=== PATIENT | female | born 1950 | race Caucasian/White ===

== ENCOUNTER 2019-07-17 20:23 | Inpatient (IN) ==
[2019-07-17] MEDS: PROCHLORPERAZINE 5 MG in SYRINGE 4 ML IV PRN (22:07)
[2019-07-17] MEDS: MoRPHine SULFATE 2 MG/ML CARP IV PRN (22:47)
[2019-07-17] MEDS ORDERED: ACETAMINOPHEN 325 MG TAB PO PRN (22:48)
--- NOTE | 2019-07-17 23:00 | History & Physical Report ---
Date of Service July 17, 2019 Assessment & Plan (1) Pyelonephritis of left kidney: 69-year-old female with history of hypertension, hyperlipidemia presents as direct admission from [facility] for concern of left-sided pyelonephritis and left renal parenchymal stone. [facility] records: CT chest/abdomen/pelvisleft renal parenchymal stone 9 x 5 mm and concern for pyelonephritis, degenerative changes of thoracic and lumbar spine. Pertinent lab findings: WBC 14.1, lactate 1.8 normal, sodium 134, mag 1.7, troponin normal. UA positivemoderate RBC/WBC/bacteria, 1+ leuk, 2+ blood, rare epi. Recent urine culture 07/04/2019 grew E. coli 50 K colonies pansensitive. EKG 76 sinus QTc 379. Patient was afebrile there and hypertensive. Received Levaquin 750 mg x 1 and Dilaudid x1. Pyelonephritis likely secondary to left renal parenchymal stone 9 x 5 mm Afebrile, WBC 14.1 Lactate normal, 1.8 CT chest/abdomen/pelvisleft renal parenchymal stone 9 x 5 mm and concern for pyelonephritis, degenerative changes of thoracic and lumbar spine UA positivemoderate RBC/WBC/bacteria, 1+ leuk, 2+ blood, rare epi Recent urine culture 07/04/2019 grew E. coli 50 K colonies pansensitive Received Levaquin 750 mg x 1 and Dilaudid x1 at [facility] Started on Cipro IV, Compazine as needed and morphine 2 mg every 3 hours as needed N.p.o. for possible procedure, IV fluids LR at 125 cc/h Urology consulted Hypertension/HLD Continue home atorvastatin and lisinopril FEN/GI: N.p.o. on LR at 125 cc/h, received 1 g mag sulfate for mag level of 1.7, mild hyponatremia sodium 134 likely hypovolemic on IV fluids DVT prophylaxis: SCDs only, encourage ambulation, chemical not initiated given possible procedure code: DNR/DNI per discussion with patient Disposition: MedSurg (2) Renal calculus, left: (3) HTN (hypertension): (4) HLD (hyperlipidemia): (5) Abdominal hernia: History of Present Illness Chief Complaint: Back pain/lightheadedness/nausea/vomiting Primary Care Provider: NO PCP 69-year-old female with history of hypertension, hyperlipidemia presents as direct admission from [facility] for concern of left-sided pyelonephritis and left renal parenchymal stone. Patient reports mid back pain for weeks which got worse yesterday. Associated with lightheadedness to the point that she could even stand, nausea, abdominal pain, chills, sweats starting yesterday as well. Patient vomited on arrival here as well. Abdominal pain is reported to be at site of para incisional hernia. Reports slow stream/hesitancy when urinating. Denies any fever, headache, chest pain, shortness of breath, diarrhea, constipation, hematochezia, melena, hematuria, dysuria. [facility] records: CT chest/abdomen/pelvisleft renal parenchymal stone 9 x 5 mm and concern for pyelonephritis, degenerative changes of thoracic and lumbar spine. Pertinent lab findings: WBC 14.1, lactate 1.8 normal, sodium 134, mag 1.7, troponin normal. UA positivemoderate RBC/WBC/bacteria, 1+ leuk, 2+ blood, rare epi. Recent urine culture 07/04/2019 grew E. coli 50 K colonies pansensitive. EKG 76 sinus QTc 379. Patient was afebrile there and hypertensive. Surgical history: Appendectomy, cholecystectomy, bowel adhesion lysis, multiple abdominal hernia repairs Social history: Smokes 6 cigarettes/day x 40 years, denies alcohol or recreational drug use Allergies Allergy/AdvReac Type Severity Reaction Status Date / Time aspirin Allergy Unknown Verified 07/17/19 21:55 Penicillins Allergy Unknown Verified 07/17/19 21:55 codeine AdvReac Unknown Verified 07/17/19 21:55 NSAIDS (Non-Steroidal AdvReac Hives Verified 07/17/19 21:55 Anti-Inflamma Home Medications Home Medications Medication Instructions Recorded Confirmed Type atorvastatin 20 mg DAILY 07/17/19 07/17/19 History lisinopril 10 mg PO DAILY 07/17/19 07/17/19 History Past Med/Surg History Medical History Adhesion of intestine H/O: hysterectomy HTN (hypertension) Hyperlipemia Social History Preferred Language: Puerto Rican Communication Ability: Effective Beliefs That Will Affect Care: None Current Living Situation: Spouse Other Information That Helps Us Care for You: No Feels Safe at Home: Yes Safety Concerns: Feels Safe At This Time Smoking Status: Current every day smoker Tobacco Type: cigarettes ; Cigarettes Per Day: 6 ; Hx Alcohol Use: No Hx Substance Use: No Review of Systems Review of Systems: As per HPI Physical Exam Physical Exam: General: In mild distress due to nausea HEENT: moist mucous membranes Neuro: A&O x 4 Pulm: CTAB equal breath sounds bilaterally CV: RRR, no m/r/g, cap refill 3 secs Abdomen:+BS, diffusely TTP in all quadrants > over LUQ, non-distended, para- incisional abdominal hernia (reducible and mildly TTP) LE: no LE edema, no calf TTP Results & Data Vital Signs (Past 12 Hours) Vital Signs Temp Pulse Resp BP Pulse Ox 07/17/19 22:47 96 H 20 166/76 H 95 07/17/19 21:43 37.1 C 79 16 149/82 H 93 Code Status & VTE Plan Code Status DNR/DNI VTE Prophylaxis Plan VTE Prophylaxis will be ordered: Yes Supervising Physician Co-Signing Physician Notes Patient seen and examined, chart reviewed, case discussed with Dr. Prieto and I agree with her assessment and plan as documented above. Briefly, patient is a 69-year-old female transferred from outside hospital with pyelonephritis of the left kidney and presence of large parenchymal renal stone. On exam she is afebrile, hemodynamically stable, no acute distress Skin is warm dry and intact without rash or lesions HEENT: Normocephalic atraumatic, pupils equal and reactive, moist mucous membranes, neck supple Heart:+S1/S2, regular Lungs CTA Abdomen: Mildly tender with deep palpation diffusely, no rebound/guarding/peritoneal signs Extremities: Warm, well-perfused Labs and images reviewed from outside hospital. Prior urine culture positive for pansensitive E. coli Assessment/plan: -Admit to medical floor -IV fluids -IV ciprofloxacin -Urology consultation appreciated -Remainder of plan as above PG Care Time/CCT Total # of Minutes Spent Total Time Spent with Patient: Total time spent is greater than 50% in coordination of care (as documented) at patient's floor/unit and/or counseling patient: Resident Activity Tracking Resident Involvement: Resident Care Provided Care Provided: Adult Hospital Medicine
--- NOTE | 2019-07-17 23:02 | History & Physical Report ---
Date of Service July 17, 2019 History of Present Illness Primary Care Provider: NO PCP Allergies Allergy/AdvReac Type Severity Reaction Status Date / Time aspirin Allergy Unknown Verified 07/17/19 21:55 Penicillins Allergy Unknown Verified 07/17/19 21:55 codeine AdvReac Unknown Verified 07/17/19 21:55 NSAIDS (Non-Steroidal AdvReac Hives Verified 07/17/19 21:55 Anti-Inflamma Home Medications Home Medications Medication Instructions Recorded Confirmed Type atorvastatin 20 mg DAILY 07/17/19 07/17/19 History lisinopril 10 mg PO DAILY 07/17/19 07/17/19 History Past Med/Surg History Medical History Adhesion of intestine H/O: hysterectomy HTN (hypertension) Hyperlipemia Social History Preferred Language: Occitan Communication Ability: Effective Beliefs That Will Affect Care: None Current Living Situation: Spouse Other Information That Helps Us Care for You: No Feels Safe at Home: Yes Safety Concerns: Feels Safe At This Time Smoking Status: Current every day smoker Tobacco Type: cigarettes ; Cigarettes Per Day: 6 ; Hx Alcohol Use: No Hx Substance Use: No Results & Data Vital Signs (Past 12 Hours) Vital Signs Temp Pulse Resp BP Pulse Ox 07/17/19 22:47 96 H 20 166/76 H 95 07/17/19 21:43 37.1 C 79 16 149/82 H 93 Code Status & VTE Plan VTE Prophylaxis Plan VTE Prophylaxis will be ordered: Yes PG Care Time/CCT Total # of Minutes Spent Total Time Spent with Patient: Total time spent is greater than 50% in coordination of care (as documented) at patient's floor/unit and/or counseling patient:
[2019-07-17] MEDS ORDERED: MAGNESIUM SULFATE / D5W 1 GM/100 ML BAG IV ONE (23:15)
[2019-07-17] MEDS: LACTATED RINGER'S 1,000 ML IV SCH (23:46)
[2019-07-18] MEDS: CIPROFLOXACIN 400 MG/200 ML BAG IV SCH ×3 (00:48→23:11)
[2019-07-18] MEDS: MoRPHine SULFATE 2 MG/ML CARP IV PRN ×4 (06:05→20:19)
[2019-07-18] MEDS: LACTATED RINGER'S 1,000 ML IV SCH ×2 (06:06→18:49)
[2019-07-18 06:18] LABS: Basophils # (auto) 0.02 K/uL (0-0.2); Basophils % (auto) 0.2 %; Eosinophils # (auto) 0.01 K/uL (0-0.5); Eosinophils % (auto) 0.1 %; Hematocrit (blood only) 36.5 % (37-47); Immature Granulocytes # (auto) 0.02 K/uL (0.00-0.02); Immature Granulocytes % (auto) 0.2 %; Lymphocytes # (auto) 1.15 K/uL (1.2-3.4); Lymphocytes % (auto) 9.3 %; Mean Corpuscular Hgb Conc 32.9 g/dL (32-36); Mean Corpuscular Volume 92.9 fL (80-100); Mean Platelet Volume 9.7 fL (7.4-10.4); Monocytes # (auto) 1.11 K/uL (0.11-0.59); Neutrophils # (auto) 10.09 K/uL (1.4-6.5); Neutrophils % (auto) 81.2 %; Platelet Count 222 K/uL (130-400); RDW Coefficient of Variation 13.5 % (11.5-14.5); RDW Standard Deviation 46.7 fL (36.4-46.3); Red Blood Count 3.93 M/uL (4.2-5.4)
[2019-07-18 06:25] LABS: INR 1.1 (0.9-1.1); Partial Thromboplastin Ratio 1.1; Partial Thromboplastin Time 29.2 Seconds (21.0-31.0); Prothrombin Time 11.2 Seconds (9.0-12.0)
[2019-07-18 06:49] LABS: Alanine Aminotransferase 16 U/L (12-78); Albumin Level 2.9 gm/dl (3.4-5.0); Aspartate Aminotransferase 11 U/L (15-37); BUN Creatinine Ratio 18.1 (10-20); Blood Urea Nitrogen 13 mg/dl (7-18); Calcium 8.9 mg/dl (8.5-10.1); Carbon Dioxide 28 mmol/L (21-32); Chloride 101 mmol/L (98-107); Est GFR (African American) 96.7; Est GFR (Non-African American) 83.4; Glucose 97 mg/dl (70-99); Sodium 135 mmol/L (136-145)
[2019-07-18 06:52] LABS: Albumin Globulin Ratio 0.7 (0.9-2); Alkaline Phosphatase 71 U/L (45-117); Bilirubin,Total 0.6 mg/dl (0.2-1); Globulin 4.3 gm/dl (2.5-4.0); Total Protein 7.2 gm/dl (6.4-8.2)
[2019-07-18] MEDS: ATORVASTATIN 20 MG TAB PO SCH (07:50)
[2019-07-18] MEDS: LISINOPRIL 10 MG TAB PO SCH (07:50)
--- NOTE | 2019-07-18 08:02 | Urology Consultation ---
Date of Consultation July 18, 2019 Assessment & Plan (1) Pyelonephritis of left kidney: 69yo F admitted from [facility] with febrile illness, nitrite positive UA; clinical left pyelonephritis with question of left renal stone. CT imaging and patient presentation reviewed with Dr. Tyson, consistent with left pyelonephritis given inflammation around kidney, however there is no acute obstruction. Left stone is in stable position, therefore there is no indication for acute surgical intervention at this time. Okay to provide diet today from our standpoint, will make NPO at midnight to re- evaluate. KUB in AM. Anticipate fevers for the next 2 days despite appropriate antibiotic coverage. Continue IVFs, pain control. We will continue to monitor with primary service. Thank you for allowing us to participate in the acute care of Ms. Rodgers. History of Present Illness Reason for Consultation: pyelo Requesting Physician: Dr. Munroe Attending Physician: Kendell Munroe History of Present Illness 69yo F with hx of multiple abdominal surgeries, stones admitted from [facility] ED for c/o midback, and left flank pain x few weeks which worsened last night. She also developed fevers, chills, nausea and emesis x1. She did not some new onset urinary urgency a few weeks ago. She was planned to have hernia repair last week, but was cancelled for unknown reason. She did have pansensitive E.coli UTI on 07/04, this could be the reason. She states she was not placed on antibiotics at that point. CT reveals stable left renal calculi, inflammation surrounding left, no obstruction, no hydro. UA +nitrites, +4 bacteria. Tmax 37.9 last evening. otherwise VSS. On exam today she is warm to touch, flushed. She appears ill, but stable. She reports nausea is improving but still noting left flank pain to be very bothersome. Voiding spontaneously without dysuria. Denies hematuria, LUTS She states she is aware she had bilateral stones for many years. Never passed. Hx evaluation >20 years ago for recurrent UTIs, but has not had issues in many years. She is NPO awaiting our evaluation Allergies Allergy/AdvReac Type Severity Reaction Status Date / Time aspirin Allergy Unknown Verified 07/17/19 21:55 Penicillins Allergy Unknown Verified 07/17/19 21:55 codeine AdvReac Unknown Verified 07/17/19 21:55 NSAIDS (Non-Steroidal AdvReac Hives Verified 07/17/19 21:55 Anti-Inflamma Home Medications Home Medications Medication Instructions Recorded Confirmed Type atorvastatin 20 mg DAILY 07/17/19 07/17/19 History lisinopril 10 mg PO DAILY 07/17/19 07/17/19 History Patient History Medical History Adhesion of intestine H/O: hysterectomy HTN (hypertension) Hyperlipemia Social History Preferred Language: Nepali Communication Ability: Effective Beliefs That Will Affect Care: None Current Living Situation: Spouse Other Information That Helps Us Care for You: No Feels Safe at Home: Yes Safety Concerns: Feels Safe At This Time Smoking Status: Current every day smoker Tobacco Type: cigarettes ; Cigarettes Per Day: 6 ; Hx Alcohol Use: No Hx Substance Use: No Review of Systems Review of Systems: Constitutional: + fever, denies chills, sweats, malaise Eyes: Denies problem reported ENMT: Denies dizziness Resp: Denies cough, Denies shortness of breath CV: Denies JVD GI: + nausea, denies vomiting : + left flank pain, +urgency, , denies suprapubic pain, dysuria, frequency, hematuria MS: Denies swelling, stiffness Integ: Denies rash, erythema Neuro: Denies falls, weakness Psych: Denies behavior change Endo: Denies polyphagia, polydipsia Heme: Denies easy bleeding Physical Exam Constitutional: no acute distress and not ill appearing Eyes: no nystagmus ENMT: Ears: no hearing impairment Neck: trachea midline Respiratory: no respiratory distress and no cough Cardiovascular: Vessels: no JVD Chest (Breasts): Chest: normal inspection of chest Gastrointestinal (Abdomen): Inspection/Auscultation: abdomen not distended and no abdominal edema Percussion/Palpation: + abdomen tender (known hernia), abdomen soft and + hernia Musculoskeletal: Head/Neck/Chest: normocephalic and head atraumatic Skin: no rashes, warm and dry Neurologic: awake; not confused and not obtunded Psychiatric: Orientation: alert and oriented x 3 Eye Contact: good eye contact Affect: no depressed affect Lymphatic: no lymphadenopathy and no lymphedema Results & Data Vital Signs (Past 12 Hours) Vital Signs Temp Pulse Resp BP Pulse Ox 07/18/19 07:15 37.7 C H 80 18 156/72 H 94 07/17/19 23:45 37.4 C 07/17/19 23:30 37.9 C H 83 18 129/79 93 07/17/19 22:47 96 H 20 166/76 H 95 07/17/19 21:43 37.1 C 79 16 149/82 H 93
[2019-07-18] MEDS: PROCHLORPERAZINE 5 MG in SYRINGE 4 ML IV PRN (12:42)
--- NOTE | 2019-07-18 22:27 | Hospitalist Progress Note ---
Date of Service July 18, 2019 Assessment & Plan (1) Pyelonephritis of left kidney: 69-year-old female with history of hypertension, hyperlipidemia presents as direct admission from [facility] for concern of left-sided pyelonephritis and left renal parenchymal stone. [facility] records: CT chest/abdomen/pelvisleft renal parenchymal stone 9 x 5 mm and concern for pyelonephritis, degenerative changes of thoracic and lumbar spine. Pertinent lab findings: WBC 14.1, lactate 1.8 normal, sodium 134, mag 1.7, troponin normal. UA positivemoderate RBC/WBC/bacteria, 1+ leuk, 2+ blood, rare epi. Recent urine culture 07/04/2019 grew E. coli 50 K colonies pansensitive. EKG 76 sinus QTc 379. Patient was afebrile there and hypertensive. Received Levaquin 750 mg x 1 and Dilaudid x1. Pyelonephritis likely secondary to left renal parenchymal stone 9 x 5 mm Afebrile, WBC 14.1 Lactate normal, 1.8 CT chest/abdomen/pelvisleft renal parenchymal stone 9 x 5 mm and concern for pyelonephritis, degenerative changes of thoracic and lumbar spine UA positivemoderate RBC/WBC/bacteria, 1+ leuk, 2+ blood, rare epi Recent urine culture 07/04/2019 grew E. coli 50 K colonies pansensitive Received Levaquin 750 mg x 1 and Dilaudid x1 at [facility] Started on Cipro IV, Compazine as needed and morphine 2 mg every 3 hours as needed N.p.o. for possible procedure, IV fluids LR at 125 cc/h Urology consulted. No intevention planned as of now. Patient continues to have fevers on 07/18. Will hold discharge at this time. Hypertension/HLD Continue home atorvastatin and lisinopril dvt scd (2) Renal calculus, left: (3) HTN (hypertension): (4) HLD (hyperlipidemia): (5) Abdominal hernia: Subjective 69 yo female reports she continues to have back pain and fever and chills. Patient denies any new symptoms. Review of Systems Review of Systems: All systems reviewed & are unremarkable except as noted in HPI & below Physical Exam Constitutional: WD/WN, vitals as above well developed Neck: trachea midline, no thyromegaly Respiratory: normal respiratory effort, lungs clear to auscultation Cardiovascular: RRR, no murmur, no edema Gastrointestinal (Abdomen): normal bowel sounds, soft, nontender, no hepatosplenomegaly Neurologic: PERRL, EOMI, accommodation nl, no face palsy, no dysarthria Psychiatric: A+Ox3, euthymic affect Lymphatic: no cervical or axillary lymphadenopathy Results & Data Vital Signs (Past 12 Hours) Vital Signs Temp Pulse Resp BP BP Pulse Ox 07/18/19 20:12 37.4 C 153/72 H 07/18/19 19:01 37.7 C H 85 22 148/77 H 96 07/18/19 15:15 37.4 C 72 18 139/77 94 PG Care Time/CCT Total # of Minutes Spent Total Time Spent with Patient: Total time spent is greater than 50% in coordination of care (as documented) at patient's floor/unit and/or counseling patient:
[2019-07-19] MEDS: LACTATED RINGER'S 1,000 ML IV SCH ×4 (01:57→19:18)
[2019-07-19] MEDS: MoRPHine SULFATE 2 MG/ML CARP IV PRN ×5 (04:26→23:32)
--- NOTE | 2019-07-19 07:14 | XRay Report ---
XR KUB/Abdomen 1 view CLINICAL HISTORY: 69 years-old Female presenting with left renal stone position. TECHNIQUE: Single supine view of the abdomen was obtained. COMPARISON: Outside CT from 07/17/2019. FINDINGS: Cholecystectomy clips noted. Nonobstructive bowel gas pattern. No gross pneumoperitoneum. Calcification projects over the left kidney consistent with calculus. This is unchanged from prior CT . This measures 10 mm. No calcifications along the courses of the ureters. Mild degenerative changes of the spine. Lung bases clear. IMPRESSION: 1. Unchanged position of the left renal calculus. No radiographic evidence of ureteral calculi. Electronically signed by: Benja Moe M.D. 07/19/2019 7:13 AM
[2019-07-19] MEDS: LISINOPRIL 10 MG TAB PO SCH (09:43)
[2019-07-19] MEDS: ATORVASTATIN 20 MG TAB PO SCH (09:43)
--- NOTE | 2019-07-19 11:25 | Urology Progress Note ---
Date of Service July 19, 2019 Assessment & Plan (1) Renal calculus, left: (2) Pyelonephritis of left kidney: A/P 69 yo female with suspected L pyelo, L nonobstructing kidney stone. Patient notes her stone has been present for years without difficulties or active management. She is reticent to consider therapy especially in the context of her upcoming planned hernia repair. Not unreasonable. As noted her stone could become colonized and turn into a nidus for recurrent bacteruria / UTI. However, in the lack of obstructive ureteral stones, conservative management with PO antibiotics x 2 weeks should suffice. It is not clear if cultures are available to guide antibiotic therapy, but her current Cipro can be used if she is responding appropriately. Consider monitoring until afebrile x 24 hours to ensure adequate clinical response. Will arrange for outpatient f/u with our service to discuss her stone disease and management. Subjective 69 yo female admitted for fever, suspected UTI, noted to have a L nonobstructing lower pole stone. She notes she is feeling better since yesterday, no fevers since 1900 yesterday. Her past notes are reviewed, no cultures appreciated. Her past imaging studies and KUB from today noted - no movement in L stone, no ureteral stones. She is disappointed as she fears her current admission and UTI will cause her upcoming hernia repair to be cancelled. She notes intermittent pain associated with her hernia and L flank. Review of Systems Constitutional: no weakness Eyes: no diplopia Ear, Nose, Mouth, Throat: no ear trauma Respiratory: no hemoptysis Cardiovascular: no chest pain Integumentary: no acne and no boil Neurologic: no paralysis Psychiatric: no hopelessness Allergy / Immunological: no tongue swelling Physical Exam Constitutional: + obese Eyes: eyes not dysmorphic ENMT: Ears: no external ear abnormality Neck: trachea midline; no anterior neck swelling Respiratory: no respiratory distress and does not use accessory muscles Cardiovascular: Vessels: radial pulses present Gastrointestinal (Abdomen): Inspection/Auscultation: abdomen not distended Percussion/Palpation: abdomen soft; abdomen nontender Musculoskeletal: Head/Neck/Chest: normocephalic and neck supple Skin: normal turgor Neurologic: awake; not obtunded Psychiatric: Orientation: oriented x 3 Lymphatic: no lymphadenopathy Results & Data Vital Signs (Past 12 Hours) Vital Signs Temp Pulse Resp BP Pulse Ox 07/19/19 07:53 36.9 C 57 L 18 130/81 93 Laboratory Results Laboratory Results - last 48 hr 07/18/19 07/18/19 07/18/19 05:50 05:50 05:50 WBC 12.40 H RBC 3.93 L Hgb 12.0 Hct 36.5 L MCV 92.9 MCH 30.5 MCHC 32.9 RDW Std Deviation 46.7 H RDW Coeff of Renetta 13.5 Plt Count 222 MPV 9.7 Immature Gran % (Auto) 0.2 Neut % (Auto) 81.2 Lymph % (Auto) 9.3 Hand % (Auto) 9.0 Eos % (Auto) 0.1 Baso % (Auto) 0.2 Immature Gran # (Auto) 0.02 Neut # (Auto) 10.09 H Lymph # (Auto) 1.15 L Hand # (Auto) 1.11 H Eos # (Auto) 0.01 Baso # (Auto) 0.02 PT 11.2 INR 1.1 APTT 29.2 PTT Ratio 1.1 Sodium 135 L Potassium 4.0 Chloride 101 Carbon Dioxide 28 Anion Gap 6.0 BUN 13 Creatinine 0.73 Est Cr Clr Drug Dosing Not Reportable Est GFR ( Amer) 96.7 Est GFR (Non-Af Amer) 83.4 BUN/Creatinine Ratio 18.1 Glucose 97 Calcium 8.9 Total Bilirubin 0.6 AST 11 L ALT 16 Alkaline Phosphatase 71 Total Protein 7.2 Albumin 2.9 L Globulin 4.3 H Albumin/Globulin Ratio 0.7 L PG Care Time/CCT Total # of Minutes Spent Total Time Spent with Patient: Total time spent is greater than 50% in coordination of care (as documented) at patient's floor/unit and/or counseling patient:
[2019-07-19] MEDS: CIPROFLOXACIN 400 MG/200 ML BAG IV SCH ×2 (11:33→22:00)
[2019-07-19] MEDS: PROCHLORPERAZINE 5 MG in SYRINGE 4 ML IV PRN (19:48)
--- NOTE | 2019-07-19 23:46 | Hospitalist Progress Note ---
Date of Service July 19, 2019 Assessment & Plan (1) Pyelonephritis of left kidney: 69-year-old female with history of hypertension, hyperlipidemia presents as direct admission from [facility] for concern of left-sided pyelonephritis and left renal parenchymal stone. [facility] records: CT chest/abdomen/pelvisleft renal parenchymal stone 9 x 5 mm and concern for pyelonephritis, degenerative changes of thoracic and lumbar spine. Pertinent lab findings: WBC 14.1, lactate 1.8 normal, sodium 134, mag 1.7, troponin normal. UA positivemoderate RBC/WBC/bacteria, 1+ leuk, 2+ blood, rare epi. Recent urine culture 07/04/2019 grew E. coli 50 K colonies pansensitive. EKG 76 sinus QTc 379. Patient was afebrile there and hypertensive. Received Levaquin 750 mg x 1 and Dilaudid x1. Pyelonephritis likely secondary to left renal parenchymal stone 9 x 5 mm Afebrile, WBC 14.1 Lactate normal, 1.8 will repeat WBC in AM CT chest/abdomen/pelvisleft renal parenchymal stone 9 x 5 mm and concern for pyelonephritis, degenerative changes of thoracic and lumbar spine UA positivemoderate RBC/WBC/bacteria, 1+ leuk, 2+ blood, rare epi Recent urine culture 07/04/2019 grew E. coli 50 K colonies pansensitive Received Levaquin 750 mg x 1 and Dilaudid x1 at [facility] Started on Cipro IV, Urology consulted. No intevention planned as of now. Patient had a fever on 07/18. None on 07/19. If this continues to be the case, will discharge patient in AM. No new cultures done at [facility] Hypertension/HLD Continue home atorvastatin and lisinopril dvt scd (2) Renal calculus, left: (3) HTN (hypertension): (4) HLD (hyperlipidemia): (5) Abdominal hernia: Subjective Patient reports doing better. She states she has not had a fever since yesterday. She does have the back pain still. Review of Systems 2 Review of Systems: All systems reviewed & are unremarkable except as noted in HPI & below Physical Exam Constitutional: WD/WN, vitals as above well developed Neck: trachea midline, no thyromegaly Respiratory: normal respiratory effort, lungs clear to auscultation Cardiovascular: RRR, no murmur, no edema Gastrointestinal (Abdomen): normal bowel sounds, soft, nontender, no hep atosplenomegaly Musculoskeletal: No CVA tenderness Neurologic: PERRL, EOMI, accommodation nl, no face palsy, no dysarthria Psychiatric: A+Ox3, euthymic affect Lymphatic: no cervical or axillary lymphadenopathy Results & Data Vital Signs (Past 12 Hours) Vital Signs Temp Pulse Pulse Resp BP BP Pulse Ox 07/19/19 23:28 37.1 C 61 16 148/75 H 97 07/19/19 21:55 64 136/77 07/19/19 16:08 57 L 160/74 H 07/19/19 15:30 36.8 C 55 L 18 174/84 H 95 PG Care Time/CCT Total # of Minutes Spent Total Time Spent with Patient: Total time spent is greater than 50% in coordination of care (as documented) at patient's floor/unit and/or counseling p atient:
[2019-07-20] MEDS: LACTATED RINGER'S 1,000 ML IV SCH ×2 (02:57→10:33)
[2019-07-20] MEDS: MoRPHine SULFATE 2 MG/ML CARP IV PRN ×3 (05:11→12:35)
[2019-07-20 05:37] LABS: Hematocrit (blood only) 29.2 % (37-47); Hemoglobin 9.8 g/dL (12.0-16.0); Mean Corpuscular Hgb Conc 33.6 g/dL (32-36); Mean Corpuscular Volume 91.5 fL (80-100); Mean Platelet Volume 10.3 fL (7.4-10.4); Platelet Count 194 K/uL (130-400); RDW Coefficient of Variation 13.4 % (11.5-14.5); RDW Standard Deviation 45.5 fL (36.4-46.3); Red Blood Count 3.19 M/uL (4.2-5.4); White Blood Count 8.63 K/uL (4.8-10.8)
[2019-07-20 06:03] LABS: BUN Creatinine Ratio 23.5 (10-20); Blood Urea Nitrogen 10 mg/dl (7-18); Calcium 8.3 mg/dl (8.5-10.1); Carbon Dioxide 26 mmol/L (21-32); Chloride 107 mmol/L (98-107); Est GFR (African American) 118.5; Est GFR (Non-African American) 102.3; Glucose 101 mg/dl (70-99); Potassium 3.8 mmol/L (3.5-5.1); Sodium 139 mmol/L (136-145)
[2019-07-20] MEDS: ATORVASTATIN 20 MG TAB PO SCH (09:02)
[2019-07-20] MEDS: LISINOPRIL 10 MG TAB PO SCH (09:03)
[2019-07-20] MEDS: CIPROFLOXACIN 400 MG/200 ML BAG IV SCH (10:30)
--- NOTE | 2019-07-20 11:09 | Urology Progress Note ---
Date of Service July 20, 2019 Assessment & Plan (1) Renal calculus, left: (2) Pyelonephritis of left kidney: A/P 69 yo female with suspected L pyelo, clinically improved, L nonobstructing lower pole renal stone. Patient notes her stone has been present for decades without difficulties or active management. She is reticent to consider therapy especially in the context of her upcoming planned hernia repair. Not unreasonable. As noted her stone could become colonized and turn into a nidus for recurrent bacteruria / UTI. Would complete a total of ~ 2 weeks of Cipro. Will arrange for outpatient f/u with our service to discuss her stone disease and management and follow for UTI. Thank you for allowing us to participate in this patient's acute care. Please recall our service PRN any further questions or concerns. Subjective 69 yo female admitted with stone and UTI. Has now been afebrile since 07/18. Past notes are reviewed, doing well on Cipro. No new culture results to review. She feels well, without c/o save her R abdominal hernia pending repair, no complaints or colicky pain. She notes her stone was first found ~30 years ago. Review of Systems Constitutional: no fever and no chills Eyes: no diplopia Ear, Nose, Mouth, Throat: no ear trauma Respiratory: no hemoptysis Cardiovascular: no chest pain Integumentary: no acne and no boil Neurologic: no paralysis Psychiatric: no hopelessness Allergy / Immunological: no tongue swelling Physical Exam Constitutional: + obese Eyes: eyes not dysmorphic ENMT: Ears: no external ear abnormality Neck: trachea midline; no anterior neck swelling Respiratory: no respiratory distress and does not use accessory muscles Cardiovascular: Vessels: radial pulses present Gastrointestinal (Abdomen): Inspection/Auscultation: abdomen not distended Percussion/Palpation: abdomen soft; abdomen nontender Musculoskeletal: Head/Neck/Chest: normocephalic and neck supple Skin: normal turgor Neurologic: awake; not obtunded Psychiatric: Orientation: oriented x 3 Lymphatic: no lymphadenopathy Results & Data Vital Signs (Past 12 Hours) Vital Signs Temp Pulse Resp BP BP Pulse Ox 07/20/19 07:51 36.6 C 57 L 18 175/86 H 98 07/19/19 23:28 37.1 C 61 16 148/75 H 97 Laboratory Results Laboratory Results - last 48 hr 07/20/19 07/20/19 05:01 05:01 WBC 8.63 RBC 3.19 L Hgb 9.8 L Hct 29.2 L MCV 91.5 MCH 30.7 MCHC 33.6 RDW Std Deviation 45.5 RDW Coeff of Renetta 13.4 Plt Count 194 MPV 10.3 Sodium 139 Potassium 3.8 Chloride 107 Carbon Dioxide 26 Anion Gap 6.0 BUN 10 Creatinine 0.44 L Est Cr Clr Drug Dosing Not Reportable Est GFR ( Amer) 118.5 Est GFR (Non-Af Amer) 102.3 BUN/Creatinine Ratio 23.5 H Glucose 101 H Calcium 8.3 L
--- NOTE | 2019-07-30 22:36 | Discharge Summary ---
Date of Service July 20, 2019 Admission HPI Per Admitting Provider 69-year-old female with history of hypertension, hyperlipidemia presents as direct admission from [facility] for concern of left-sided pyelonephritis and left renal parenchymal stone. Patient reports mid back pain for weeks which got worse yesterday. Associated with lightheadedness to the point that she could even stand, nausea, abdominal pain, chills, sweats starting yesterday as well. Patient vomited on arrival here as well. Abdominal pain is reported to be at site of para incisional hernia. Reports slow stream/hesitancy when urinating. Denies any fever, headache, chest pain, shortness of breath, diarrhea, constipation, hematochezia, melena, hematuria, dysuria. [facility] records: CT chest/abdomen/pelvisleft renal parenchymal stone 9 x 5 mm and concern for pyelonephritis, degenerative changes of thoracic and lumbar spine. Pertinent lab findings: WBC 14.1, lactate 1.8 normal, sodium 134, mag 1.7, troponin normal. UA positivemoderate RBC/WBC/bacteria, 1+ leuk, 2+ blood, rare epi. Recent urine culture 07/04/2019 grew E. coli 50 K colonies pansensitive. EKG 76 sinus QTc 379. Patient was afebrile there and hypertensive. Surgical history: Appendectomy, cholecystectomy, bowel adhesion lysis, multiple abdominal hernia repairs Social history: Smokes 6 cigarettes/day x 40 years, denies alcohol or recreational drug use Principal Diagnosis pyelonephritis Discharge Exam Constitutional: WD/WN, vitals as above well developed Neck: trachea midline, no thyromegaly Respiratory: normal respiratory effort, lungs clear to auscultation Cardiovascular: RRR, no murmur, no edema Gastrointestinal (Abdomen): normal bowel sounds, soft, nontender, no hepatosplenomegaly Musculoskeletal: No CVA tenderness Neurologic: PERRL, EOMI, accommodation nl, no face palsy, no dysarthria Psychiatric: A+Ox3, euthymic affect Lymphatic: no cervical or axillary lymphadenopathy Discharge Data Allergies Allergy/AdvReac Type Severity Reaction Status Date / Time aspirin Allergy Unknown Verified 07/17/19 21:55 Penicillins Allergy Unknown Verified 07/17/19 21:55 codeine AdvReac Unknown Verified 07/17/19 21:55 NSAIDS (Non-Steroidal AdvReac Hives Verified 07/17/19 21:55 Anti-Inflamma Consultations 07/17/19 22:53 Consult Urology Routine 07/19/19 10:53 Consult Health Information Management Routine 07/20/19 14:54 Consult [employer] vocational rehabilitation technician Routine Hospital Course (1) Pyelonephritis of left kidney: 69-year-old female with history of hypertension, hyperlipidemia presents as direct admission from [facility] for concern of left-sided pyelonephritis and left renal parenchymal stone. [facility] records: CT chest/abdomen/pelvisleft renal parenchymal stone 9 x 5 mm and concern for pyelonephritis, degenerative changes of thoracic and lumbar spine. Pertinent lab findings: WBC 14.1, lactate 1.8 normal, sodium 134, mag 1.7, troponin normal. UA positivemoderate RBC/WBC/bacteria, 1+ leuk, 2+ blood, rare epi. Recent urine culture 07/04/2019 grew E. coli 50 K colonies pansensitive. EKG 76 sinus QTc 379. Patient was afebrile there and hypertensive. Received Levaquin 750 mg x 1 and Dilaudid x1. Pyelonephritis likely secondary to left renal parenchymal stone 9 x 5 mm Afebrile, WBC 14.1 Lactate normal, 1.8 will repeat WBC in AM CT chest/abdomen/pelvisleft renal parenchymal stone 9 x 5 mm and concern for pyelonephritis, degenerative changes of thoracic and lumbar spine UA positivemoderate RBC/WBC/bacteria, 1+ leuk, 2+ blood, rare epi Recent urine culture 07/04/2019 grew E. coli 50 K colonies pansensitive Received Levaquin 750 mg x 1 and Dilaudid x1 at [facility] Started on Cipro IV, Urology consulted. No intevention planned as of now. Patient had a fever on 07/18. None on 07/19. This continued to be the case, discharge patient on 07/20. No new cultures done at [facility] Hypertension/HLD Continue home atorvastatin and lisinopril dvt scd (2) Renal calculus, left: (3) HTN (hypertension): (4) HLD (hyperlipidemia): (5) Abdominal hernia: Total Time Total Time Spent Total Time Spent (In Minutes): 32 Total Time Includes: Examination of the Patient, Discharge Planning and M edication Reconciliation Discharge Plan Discharge Items Patient Disposition: Home - Self-Care Reason For Visit: PYELONEPHRITIS, RENAL STONE Activity: Resume your previous activity Non-emergency contact: Primary Care Provider Follow-up/Referrals: Lee Krishnan [Primary Care Provider] - [employer] Provider Instructions: Followup with Urology in 2 weeks Recheck hemoglobin in 1 week. Followup with PCP in 1 week. Stand-Alone Forms: My [facility], Opioid Pain Management Medications and DC Order Prescriptions: New ciprofloxacin HCl 500 mg tablet 500 mg PO Q12H Qty: 22 RF: 0 acetaminophen [Mapap (acetaminophen)] 325 mg Tablet 650 mg PO Q4H PRN (Reason: pain) Qty: 30 RF: 0 lidocaine 5 % adhesive patch,medicated 1 patch TOP DAILY Qty: 30 RF: 0 tramadol 50 mg tablet 50 mg PO Q12H PRN (Reason: pain) Qty: 14 RF: 0 ciprofloxacin HCl 500 mg tablet 500 mg PO Q12H Qty: 22 RF: 0 Continued lisinopril 10 mg tablet 10 mg PO DAILY RF: 0 atorvastatin 20 mg tablet 20 mg DAILY RF: 0 Discharge Orders: Discharge Order (Routine); Ordered 07/20/19 Ordered By: Kendell Moses/Other Patient Handouts: Pyelonephritis Dc Admission Data Admit Date/Time: 07/17/19 21:38 Attending Provider: Kendell Munroe Admit Provider: Marguerite Garcia Primary Care Provider: Lee Krishnan Other Providers: Froylan Tyson I. Other Interventions: Discharge Summary Assessment (RN) Last Done: 07/20/19 15:03 DC Date/Time DO NOT enter until pt leaves facility: 07/20/19 15:45
== END 2019-07-20 15:45 | disposition home or self-care (01) | DRG 694 ==
LOC: SUATTDRO 21:38 → 3E 21:38
DX: N20.0 Calculus of kidney; E78.5 Hyperlipidemia, unspecified; I10 Essential (primary) hypertension